=== PATIENT | male | born 1990 | race Asian ===

== ENCOUNTER 2019-03-02 05:41 | Emergency (ER) | payer OTHER ==
[~2019-03-02] VITALS: Ht 177.8 cm; Wt 140.2 kg
[2019-03-02 05:53] VITALS: TEMP 97.9
[2019-03-02 06:30] LABS: PLATELET COUNT 218 K/uL (142-355)
[2019-03-02 06:33] LABS: POTASSIUM 3.7 mmol/L (3.6-5.2); SODIUM 140 mmol/L (136-145)
[2019-03-02 07:00] LABS: PARTIAL THROMBOPLASTIN TIME 26.7 SECONDS (24.5-33.6)
[2019-03-02 07:44] VITALS: BP 134/87
== END 2019-03-02 07:44 | disposition home or self-care (01) ==
LOC: ED 05:41
PROVIDERS: Hospitalist
DX: G44.209 Tension-type headache, unspecified, not intractable (principal); G62.9 Polyneuropathy, unspecified
CPT/HCPCS: 36415; 80053; 83880; 84484; 85027; 85379; 85610; 85730; 93005; 96374; 96375; 99284; J1885; J2405